=== PATIENT | female | born 1990 | race Hispanic/Latino ===

== ENCOUNTER 2017-04-07 06:52 | Day surgery (SDC) | payer MEDICAID ==
[2017-04-04 11:47] VITALS: BP 113/67
[2017-04-04 11:51] LABS: BASOPHILS % (AUTO) 0.6 % (0.0-5.0); EOSINOPHILS % (AUTO) 1.4 % (0.0-8.0); HEMATOCRIT 38.6 % (36-48); LYMPHOCYTES % (AUTO) 20.8 % (21.0-51.0); MEAN CORPUSCULAR HEMOGLOBIN 29.3 pg (27.0-33.0); MEAN CORPUSCULAR HGB CONC 34.1 g/dL (32.0-36.0); MEAN CORPUSCULAR VOLUME 85.8 fL (79-99); NEUTROPHILS % (AUTO) 72.2 % (40.0-77.0); PLATELET COUNT (AUTO) 298 K/uL (130-400); RED CELL DISTRIBUTION WIDTH 12.9 % (11.0-15.5); WHITE BLOOD COUNT (AUTO) 10.6 K/uL (4.8-10.8)
[~2017-04-07] VITALS: Ht 154.9 cm; Wt 72.1 kg
[~2017-04-07 06:52] MED LIST: CALDOLOR 800MG+NS 250ML 250 ML IV SCH; CEFAZOLIN SODIUM 1 GM VIAL IVP SCH
[2017-04-07] MEDS ORDERED: NEOSTIGMINE METHYLSULFATE 1MG/ML IV ONE (06:57)
[2017-04-07] MEDS ORDERED: PROPOFOL 10 MG/ML 20ML VIAL IV ONE ×2 (06:57→08:58)
[2017-04-07] MEDS ORDERED: GLYCOPYRROLATE 0.2 MG/ML 5 ML VIAL ONE (06:57)
[2017-04-07] MEDS ORDERED: SUCCINYLCHOLINE 200MG/10ML SYR ONE ×2 (06:57→09:10)
[2017-04-07] MEDS ORDERED: DEXAMETHASONE SOD PHOSPHATE 10MG/ML 1ML VIAL ONE (06:57)
[2017-04-07] MEDS ORDERED: MIDAZOLAM HCL 1 MG/ML 2ML VIAL ONE (06:57)
[2017-04-07] MEDS ORDERED: ONDANSETRON HCL 4 MG/2 ML VIAL ONE (06:57)
[2017-04-07] MEDS ORDERED: FENTANYL CITRATE PF 50 MCG/1 ML 2ML VIAL ONE ×2 (06:58→08:50)
[2017-04-07] MEDS ORDERED: LIDOCAINE HCL MPF 1% 5ML VIAL ONE (07:00)
[2017-04-07 07:26] VITALS: BP 111/70
[2017-04-07] MEDS ORDERED: LACTATED RINGERS 1000ML 1,000 ML IV ONE (07:41)
[2017-04-07] MEDS ORDERED: LIDOCAINE HCL-MPF 2% 5ML VIAL ONE (09:10)
[2017-04-07] MEDS ORDERED: OXYTOCIN 10 USP UNITS/ML ONE (09:10)
[2017-04-07] MEDS ORDERED: EPHEDRINE SULFATE 50 MG/ML AMPULE IV PRN (09:45)
[2017-04-07] MEDS ORDERED: EPHEDRINE-NS PF 50MG/5ML SYRINGE IV ONE (09:49)
[2017-04-07 10:44] VITALS: BP 105/76
[2017-04-07 11:00] VITALS: BP 107/59
[2017-04-07 11:15] VITALS: BP 110/59
== END 2017-04-07 11:20 | disposition home or self-care (01) ==
LOC: DAH 06:52
DX: O02.1 Missed abortion (principal); Z3A.08 8 weeks gestation of pregnancy; Z98.890 Other specified postprocedural states
CPT/HCPCS: 36415; 59820; 85025; 88305; A4510; A4600; A4606; J0330 ×2; J1100; J1741; J2250; J2405; J2590; J2704 ×2; J2710; J3010 ×2; J3490 ×4; J7120 ×2

== ENCOUNTER 2019-04-30 09:49 | Emergency (ER) | payer BC, MEDICAID ==
[2019-04-30] MEDS ORDERED: SODIUM CHLORIDE 0.9% 1000ML 1,000 ML IV ONE (10:03)
[2019-04-30 10:20] LABS: BASOPHILS % (AUTO) 0.4 % (0.0-5.0); EOSINOPHILS % (AUTO) 0.5 % (0.0-8.0); HEMATOCRIT 45.1 % (36-48); LYMPHOCYTES % (AUTO) 17.1 % (21.0-51.0); MEAN CORPUSCULAR HEMOGLOBIN 28.3 pg (27.0-33.0); MEAN CORPUSCULAR HGB CONC 32.4 g/dL (32.0-36.0); MEAN CORPUSCULAR VOLUME 87.6 fL (79-99); MONOCYTES % (AUTO) 5.5 % (3.0-13.0); NEUTROPHILS % (AUTO) 76.1 % (40.0-77.0); PLATELET COUNT (AUTO) 303 K/uL (130-400); RED BLOOD CELL COUNT(AUTO) 5.15 MIL/uL (4.00-5.50); RED CELL DISTRIBUTION WIDTH 12.9 % (11.0-15.5); WHITE BLOOD COUNT (AUTO) 10.3 K/uL (4.8-10.8)
[2019-04-30 10:25] LABS: APPEARANCE,URINE Clear (CLEAR); BILIRUBIN,URINE Negative (NEGATIVE); COLOR,URINE Yellow (YELLOW); GLUCOSE, URINE (UA) Negative (NEGATIVE); KETONES,URINE Negative (NEGATIVE); LEUKOCYTE ESTERASE ,URINE Trace (NEGATIVE); NITRATE,URINE Negative (NEGATIVE); OCCULT BLOOD,URINE Moderate (NEGATIVE); PROTEIN,URINE Negative (NEGATIVE)
[2019-04-30 10:31] LABS: CREATININE 0.5 mg/dL (0.5-1.5); POTASSIUM 3.5 mmol/L (3.5-5.1)
[2019-04-30 10:38] LABS: BACTERIA,URINE Few /HPF (None Seen); COARSE GRANULAR CASTS,URINE 0-2 /LPF (None Seen); MUCUS,URINE Many LPF (None Seen); RBC,URINE 0-1 /HPF (0-1); SQUAMOUS EPITHELIAL CELL,UR 0-2 /HPF (0-2); WBC,URINE 0-1 /HPF (0-1)
[2019-04-30 10:57] LABS: ALBUMIN 3.4 g/dL (3.5-5.0); BILIRUBIN,TOTAL 1.5 mg/dL (0.2-1.0); TOTAL PROTEIN, SERUM 7.6 g/dL (6.0-8.3)
[2019-04-30] MEDS ORDERED: ONDANSETRON HCL 4 MG/2 ML VIAL ONE (11:31)
== END 2019-04-30 11:42 | disposition home or self-care (01) ==
LOC: EDH 09:49
DX: O20.0 Threatened abortion (principal); Z3A.01 Less than 8 weeks gestation of pregnancy; Z98.890 Other specified postprocedural states
CPT/HCPCS: 36415; 76801; 80053; 81001; 84702; 85025; 86900; 86901; 96374; 99284; J2405; J7030

== ENCOUNTER 2019-11-11 07:41 | Observation (INO) | payer BC ==
[~2019-11-11] VITALS: Ht 152.4 cm; Wt 80.3 kg
[2019-11-11 08:51] VITALS: BP 102/55
[2019-12-13] MEDS ORDERED: PREN1TAB80 PO (17:19)
== END 2019-11-11 10:00 | disposition home or self-care (01) ==
LOC: LDH 07:41
PROVIDERS: ADMIT Specialist; ATTEND Specialist
DX: O26.893 Other specified pregnancy related conditions, third trimester (principal); Z3A.35 35 weeks gestation of pregnancy
CPT/HCPCS: 59025 ×2; 76819; G0378 ×2

== ENCOUNTER 2019-11-15 09:15 | Observation (INO) | payer BC ==
[~2019-11-15] VITALS: Ht 152.4 cm; Wt 80.3 kg
[2019-12-13] MEDS ORDERED: PREN1TAB80 PO (17:19)
== END 2019-11-15 10:20 | disposition home or self-care (01) ==
LOC: LDH 09:15
PROVIDERS: ADMIT Specialist; ATTEND Specialist
DX: O26.893 Other specified pregnancy related conditions, third trimester (principal); Z3A.36 36 weeks gestation of pregnancy
CPT/HCPCS: 59025; 76819; G0378

== ENCOUNTER 2019-11-28 03:03 | Observation (INO) | payer BC ==
[~2019-11-28] VITALS: Ht 152.4 cm; Wt 81.6 kg
[2019-11-28 03:39] LABS: APPEARANCE,URINE Cloudy (CLEAR); BILIRUBIN,URINE Negative (NEGATIVE); COLOR,URINE Yellow (YELLOW); GLUCOSE, URINE (UA) Negative (NEGATIVE); KETONES,URINE Negative (NEGATIVE); LEUKOCYTE ESTERASE ,URINE Moderate (NEGATIVE); NITRATE,URINE Negative (NEGATIVE); OCCULT BLOOD,URINE Negative (NEGATIVE); PH,URINE 6.5 (5.0-8.0); PROTEIN,URINE Trace mg/dL (NEGATIVE)
[2019-11-28 04:10] LABS: BACTERIA,URINE Few /HPF (None Seen); SQUAMOUS EPITHELIAL CELL,UR Moderate /HPF (0-2)
== END 2019-11-28 09:00 | disposition home or self-care (01) ==
LOC: EDH 03:03 → LDH 03:04
PROVIDERS: ADMIT Specialist; ATTEND Specialist
DX: O60.03 Preterm labor without delivery, third trimester (principal); M54.5 Low back pain; Z3A.38 38 weeks gestation of pregnancy
CPT/HCPCS: 81001; 87088; 99283; G0378 ×6

== ENCOUNTER 2021-03-23 06:19 | Inpatient (IN) | payer OTHER ==
[~2021-03-23] VITALS: Ht 152.4 cm; Wt 83.0 kg
[~2021-03-23 06:19] MED LIST changes: -CALDOLOR 800MG+NS 250ML 250 ML IV SCH; -CEFAZOLIN SODIUM 1 GM VIAL IVP SCH; +PREN1TAB80 PO
[2021-03-23] MEDS ORDERED: OXYTOCIN-LR 20 UNITS/1000 ML 1,000 ML IV SCH ×2 (07:00→12:30)
[2021-03-23] MEDS ORDERED: EPHEDRINE SULFATE 50 MG/ML AMPULE IVP PRN (07:00)
[2021-03-23] MEDS ORDERED: LACTATED RINGERS 1000ML 1,000 ML IV PRN (07:00)
[2021-03-23] MEDS ORDERED: PROMETHAZINE HCL 25 MG/ML 1ML AMPULE IM PRN (07:00)
[2021-03-23] MEDS ORDERED: NALOXONE HCL 0.4 MG/1 ML ML IV PRN (07:00)
[2021-03-23] MEDS ORDERED: LACTATED RINGERS 500 ML 500 ML IV PRN (07:00)
[2021-03-23] MEDS ORDERED: MEPERIDINE-PF 50 MG/ML SYG IM PRN (07:00)
[2021-03-23] MEDS ORDERED: ROPIVACAINE 0.2% 100ML VIAL 100 ML EP PRN (07:00)
[2021-03-23 07:16] LABS: HEMATOCRIT 34.4 % (36-48); MEAN CORPUSCULAR HEMOGLOBIN 24.5 pg (27.0-33.0); MEAN CORPUSCULAR HGB CONC 31.7 g/dL (32.0-36.0); MEAN CORPUSCULAR VOLUME 77.5 fL (79-99); PLATELET COUNT (AUTO) 235 K/uL (130-400); RED BLOOD CELL COUNT(AUTO) 4.44 MIL/uL (4.00-5.50); RED CELL DISTRIBUTION WIDTH 13.9 % (11.0-15.5); WHITE BLOOD COUNT (AUTO) 10.1 K/uL (4.8-10.8)
[2021-03-23 07:22] LABS: APPEARANCE,URINE Clear (CLEAR); BILIRUBIN,URINE Negative (NEGATIVE); COLOR,URINE Yellow (YELLOW); GLUCOSE, URINE (UA) Negative (NEGATIVE); KETONES,URINE Negative (NEGATIVE); LEUKOCYTE ESTERASE ,URINE Moderate (NEGATIVE); NITRATE,URINE Negative (NEGATIVE); OCCULT BLOOD,URINE Negative (NEGATIVE); PROTEIN,URINE Negative (NEGATIVE)
[2021-03-23 07:30] VITALS: BP 116/74
[2021-03-23 07:32] LABS: SQUAMOUS EPITHELIAL CELL,UR Moderate /HPF (0-2)
[2021-03-23 07:33] LABS: BACTERIA,URINE Moderate /HPF (None Seen); MUCUS,URINE Few LPF (None Seen); RBC,URINE None Seen /HPF (0-1)
[2021-03-23] MEDS ORDERED: LIDOCAINE HCL 1% 20 ML VIAL ONE (08:46)
[2021-03-23] MEDS ORDERED: LIDOCAINE HCL 1% 20 ML VIAL INJ PRN (09:00)
[2021-03-23] MEDS ORDERED: MEPERIDINE-PF 50 MG/ML SYG IVP PRN (10:00)
[2021-03-23] MEDS ORDERED: MISOPROSTOL 200 MCG TABLET ONE (10:04)
[2021-03-23] MEDS ORDERED: METHYLERGONOVINE MALEATE 0.2 MG/1 ML ML ONE (10:05)
[2021-03-23] MEDS ORDERED: OXYTOCIN 10 USP UNITS/ML ONE ×2 (12:23→12:25)
[2021-03-23] MEDS ORDERED: DIPH,PERTUSS(ACELL),TET VAC/PF 0.5 ML VIAL IM PRN (12:30)
[2021-03-23] MEDS ORDERED: LANOLIN 30GM OINTMENT TP PRN (12:30)
[2021-03-23] MEDS ORDERED: ACETAMINOPHEN WITH CODEINE 1 TAB TAB PO PRN (12:30)
[2021-03-23] MEDS ORDERED: WITCH HAZEL 1 PAD TP PRN (12:30)
[2021-03-23] MEDS ORDERED: ACETAMINOPHEN 325 MG TAB PO PRN (12:30)
[2021-03-23] MEDS ORDERED: MEASLES/MUMPS/RUBELLA VACCINE, LIVE 0.5 ML/VIAL SQ PRN (12:30)
[2021-03-23] MEDS ORDERED: BENZOCAINE/LANOLIN/ALOE VERA 60 ML AEROSOL TP PRN (12:30)
[2021-03-23] MEDS: IBUPROFEN 600 MG TABLET PO PRN ×2 (13:03→20:56)
[2021-03-23 14:20] VITALS: BP 115/71
[2021-03-23 15:55] VITALS: BP 121/62
[2021-03-23 19:21] VITALS: BP 112/58
[2021-03-23] MEDS: DOCUSATE SODIUM 100 MG CAP PO SCH (20:55)
[2021-03-24 00:27] VITALS: BP 114/71
[2021-03-24 03:55] VITALS: BP 108/66
[2021-03-24] MEDS: IBUPROFEN 600 MG TABLET PO PRN (09:22)
[2021-03-24] MEDS: DOCUSATE SODIUM 100 MG CAP PO SCH (09:22)
[2021-03-24 11:35] VITALS: BP 123/69
== END 2021-03-24 13:25 | disposition home or self-care (01) | DRG 807 ==
LOC: LDH 06:19 → WSH 14:05
PROVIDERS: ADMIT Specialist; ATTEND Specialist
PROC: 10E0XZZ Delivery of Products of Conception, External Approach (ICD-10-PCS; principal; 2021-03-23)
PROC: 3E0234Z Introduction of Serum, Toxoid and Vaccine into Muscle, Percutaneous Approach (ICD-10-PCS; 2021-03-23)
DX: O24.12 Pre-existing type 2 diabetes mellitus, in childbirth (principal); Z37.0 Single live birth; O69.2XX0 Labor and delivery complicated by other cord entanglement, with compression, not applicable or unspecified; E11.9 Type 2 diabetes mellitus without complications; Z3A.38 38 weeks gestation of pregnancy; Z23 Encounter for immunization
CPT/HCPCS: 36415; 81001; 82948; 85027; 86592; 86850; 86900; 86901; 87088; 87340; 90715; G0378; J2175; J2210; J2550; J2590; J7120